=== PATIENT | female | born 1980 | race American Indian/Alaskan Native ===

== ENCOUNTER 2017-05-11 14:48 | Emergency (ER) | payer OTHER, MEDICAID ==
[2017-05-11] MEDS ORDERED: NORCO 10/325 PO ONE (20:03)
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
[2017-05-12 00:01] VITALS: BP 135/80
== END 2017-05-11 22:10 | disposition home or self-care (01) ==
LOC: ED 14:48
DX: S09.90XA Unspecified injury of head, initial encounter (principal); S16.1XXA Strain of muscle, fascia and tendon at neck level, initial encounter; M54.6 Pain in thoracic spine; I10 Essential (primary) hypertension; F17.200 Nicotine dependence, unspecified, uncomplicated; V59.50XA Passenger in pick-up truck or van injured in collision with unspecified motor vehicles in traffic accident, initial encounter; Y92.410 Unspecified street and highway as the place of occurrence of the external cause; Y93.89 Activity, other specified; Y99.9 Unspecified external cause status
CPT/HCPCS: 70450; 72125; 72128